=== PATIENT | female | born 1965 | race Caucasian/White ===

== ENCOUNTER 2024-03-08 17:15 | Emergency (ER) | payer OTHER ==
[2024-03-08 17:42] VITALS: RESP 22; TEMP 98.1; BMI 32.8
[2024-03-08] MEDS ORDERED: DIPHTH,PERTUSS(ACELL),TET 0.5 ML DISP.SYRIN IM ONE (18:28)
[2024-03-08] MEDS: DIPHTH,PERTUSS(ACELL),TET 0.5 ML DISP.SYRIN IM ONE (18:30)
[2024-03-08] MEDS ORDERED: ACETAMINOPHEN 500 MG TABLET (FP) ONE (18:32)
[2024-03-08] MEDS: ACETAMINOPHEN 500 MG TABLET (FP) PO ONE (18:33)
[2024-03-08 19:14] VITALS: BP 159/87; PULSE 97
[2024-03-08] MEDS ORDERED: IBUPROFEN 400 MG TABLET (FP) PO ONE (19:44)
[2024-03-08] MEDS: IBUPROFEN 400 MG TABLET (FP) PO ONE (19:54)
== END 2024-03-08 19:55 | disposition home or self-care (01) ==
LOC: JERFT 17:15
PROC: 3E0234Z Introduction of Serum, Toxoid and Vaccine into Muscle, Percutaneous Approach (ICD-10-PCS; principal; 2024-03-08)
DX: S01.81XA Laceration without foreign body of other part of head, initial encounter (principal); S20.212A Contusion of left front wall of thorax, initial encounter; R07.81 Pleurodynia; W11.XXXA Fall on and from ladder, initial encounter; Y92.009 Unspecified place in unspecified non-institutional (private) residence as the place of occurrence of the external cause; Z23 Encounter for immunization
CPT/HCPCS: 71101-TC-LT-FY; 90715